=== PATIENT | female | born 1950 | race African-American/Black ===

== ENCOUNTER → 2021-12-31 | Day surgery (SDC) | payer OTHER | END | disposition home or self-care (01) | LOC: JRADUS-SUR 07:51 | PROVIDERS: ATTEND Legal Medicine | PROC: 0H9T3ZX Drainage of Right Breast, Percutaneous Approach, Diagnostic (ICD-10-PCS; principal; 2021-12-31) | DX: C50.411 Malignant neoplasm of upper-outer quadrant of right female breast (principal); Z17.0 Estrogen receptor positive status [ER+] | CPT/HCPCS: 19083; 77065-TC; 87899; 88305-TC; 88341-TC; 88342-TC; A4648 ==

== ENCOUNTER 2022-06-06 14:58 | Emergency (ER) | payer OTHER ==
[2022-06-06 15:38] VITALS: BP 159/85; PULSE 86; RESP 16; TEMP 100.5; BMI 26.6
[2022-06-06] MEDS ORDERED: ACETAMINOPHEN 325 MG TABLET (FP) PO ONE (16:54)
[2022-06-06 17:41] LABS: EPI CELLS 2 /uL (0-25.1); HYALINE CASTS 0 /uL (0-3.1); URINE APPEARANCE CLEAR; URINE BACTERIA 4 /uL (0-1359); URINE BILIRUBIN NEGATIVE (NEGATIVE); URINE COLOR YELLOW; URINE GLUCOSE (UA) NEGATIVE (NEGATIVE); URINE KETONE NEGATIVE (NEGATIVE); URINE LEUK ESTERASE NEGATIVE (NEGATIVE); URINE NITRITE NEGATIVE (NEGATIVE); URINE PROTEIN NEGATIVE (NEGATIVE); URINE RBC 299 /uL (0-23.9); URINE UROBILINOGEN 0.2 mg/dL (0.2-1.0); URINE WBC 10 /uL (0-25.8)
[2022-06-06] MEDS ORDERED: BISACODYL 10 MG SUPP.RECT PR ONE (17:56)
[2022-06-06] MEDS ORDERED: POLYETHYLENE GLYCOL (HEALTHYLAX) 3350 17 GM PACKET PO ONE (18:00)
[2022-06-06] MEDS ORDERED: POLYETHYLENE GLYCOL (HEALTHYLAX) 3350 17 GM PACKET ONE (18:16)
[2022-06-06] MEDS ORDERED: BISACODYL 10 MG SUPP.RECT ONE (18:16)
[2022-06-06] MEDS ORDERED: ACETAMINOPHEN 325 MG TABLET (FP) ONE (18:17)
[2022-06-06] MEDS ORDERED: LACTATED RINGERS SOLUTION 1000 ML INFUS.BAG IV ONE (19:11)
[2022-06-06] MEDS ORDERED: METOCLOPRAMIDE HCL INJECTION 10 MG/2 ML VIAL IVPUSH ONE (19:11)
[2022-06-06] MEDS ORDERED: METOCLOPRAMIDE HCL INJECTION 10 MG/2 ML VIAL ONE (19:19)
[2022-06-06] MEDS ORDERED: GLYCERIN 1 RECTAL SUPPOSITORY, ADULT PR ONE (20:55)
[2022-06-06 21:23] LABS: BASO % 0.8 % (0-2.0); EOS % 0.2 % (0-4.5); HEMATOCRIT 38.2 % (32.4-45.2); HEMOGLOBIN 12.6 GM/dL (10.7-15.3); LYMPH % 17.1 % (8-40); MCH 28.1 pg (25.7-33.7); MCHC 32.9 g/dl (32.0-36.0); MEAN CELL VOLUME 85.2 fl (80-96); MEAN PLT VOLUME 8.9 fl (7.5-11.1); NEUT % 62.9 % (42.8-82.8); PLATELET COUNT 175 10^3/uL (134-434); RBC 4.49 M/mm3 (3.60-5.2); RDW 13.9 % (11.6-15.6); WHITE BLOOD COUNT 3.9 K/mm3 (4.0-10.0)
[2022-06-06 22:26] LABS: BASO % 0.9 % (0-2.0); EOS % 0.1 % (0-4.5); MCH 28.4 pg (25.7-33.7); MCHC 33.2 g/dl (32.0-36.0); MEAN CELL VOLUME 85.4 fl (80-96); MEAN PLT VOLUME 9.6 fl (7.5-11.1); MONO % 16.9 % (3.8-10.2); NEUT % 63.1 % (42.8-82.8); PLATELET COUNT 180 10^3/uL (134-434); RBC 4.57 M/mm3 (3.60-5.2); RDW 13.8 % (11.6-15.6); WHITE BLOOD COUNT 3.7 K/mm3 (4.0-10.0)
[2022-06-06 22:34] LABS: ALBUMIN 3.5 g/dl (3.4-5.0); BLOOD UREA NITROGEN 10.4 mg/dL (7-18); CALCIUM 9.7 mg/dL (8.5-10.1)
[2022-06-06 22:36] LABS: CREATININE 0.8 mg/dL (0.55-1.3)
[2022-06-06 22:38] LABS: BILIRUBIN,TOTAL 0.6 mg/dL (0.2-1); TOT PROT 6.6 g/dl (6.4-8.2)
[2022-06-06 22:57] LABS: ALBUMIN 3.6 g/dl (3.4-5.0); BLOOD UREA NITROGEN 9.7 mg/dL (7-18); CALCIUM 9.7 mg/dL (8.5-10.1)
[2022-06-06 23:01] LABS: CREATININE 0.8 mg/dL (0.55-1.3)
[2022-06-06 23:03] LABS: BILIRUBIN,TOTAL 0.6 mg/dL (0.2-1); TOT PROT 6.7 g/dl (6.4-8.2)
== END 2022-06-06 22:51 | disposition home or self-care (01) ==
LOC: JER 14:58
PROC: 3E033GC Introduction of Other Therapeutic Substance into Peripheral Vein, Percutaneous Approach (ICD-10-PCS; principal; 2022-06-06)
DX: K59.00 Constipation, unspecified (principal)
CPT/HCPCS: 0241U-QW; 36415; 74019-TC-FY; 80053; 81003; 85025; 87077; 87086; 99284-25